=== PATIENT | male | born 1970 | race African-American/Black ===

== ENCOUNTER 2017-05-09 08:39 | Outpatient (CLI) | payer OTHER ==
--- NOTE | 2017-05-09 10:15 | MRI ---
MRI RIGHT KNEE WITHOUT CONTRAST: Date: 05/09/17 HISTORY: S89.91XD, injury of right knee. COMPARISON: Knee radiograph dated 07/12/07. FINDINGS: Medial Meniscus: Mild free edge fraying. No displaced tear. Lateral Meniscus: Chronic undersurface tear of the posterior horn lateral meniscus extending to the root attachment. Th ere is also a full thickness radial tear of the posterior horn and body junction with loss of volume of lateral meniscal body. ACL and PCD are intact. MCL and LCL are also intact. Extensor Mechanism: There is mild elongation of the lateral patellar facet. The patellar tendon and quadriceps tendon are intact. Cartilage: Patellofemoral compartment: There is 50% thickness cartilage fissure of the lateral trochlea. Medical compartment: A few 50-75% thickness cartilage fissures of the central weightbearing surface of the medial femoral condyle. No subchondral edema. Posterior flexion zone is intact. Lateral compartment: There is extensive cartilage loss of the weightbearing surface of medial femora l condyle and medial tibial plateau of 50-75%. Soft Tissues: Small popliteal cyst without evidence of leak. Muscles: Normal muscle signal and bulk. Bones: Moderate size tricompartmental osteophytes, largest in the lateral compartment. IMPRESSION: 1. Full thickness radial tear posterior horn and body junction of lateral meniscus with extension of the undersurface flap tear of the posterior horn and root attachment. There is subsequent loss of no rmal hoop stress, remodeling of the lateral compartment, and large osteophyte formation. There is als o multifocal 50-75% cartilage loss. 2. Small to moderate size patellofemoral osteophytes and small medial compartment osteophytes. 3. 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 POS: [facility]
== END 2017-05-09 08:40 | disposition home or self-care (01) ==
LOC: MRI 08:39
PROVIDERS: ATTEND Family Medicine
DX: S86.911D Strain of unspecified muscle(s) and tendon(s) at lower leg level, right leg, subsequent encounter (principal); S89.91XD Unspecified injury of right lower leg, subsequent encounter; S83.281A Other tear of lateral meniscus, current injury, right knee, initial encounter; M22.41 Chondromalacia patellae, right knee

== ENCOUNTER 2017-10-20 22:43 | Emergency (ER) | payer SELFPAY ==
--- NOTE | 2017-10-20 23:07 | RAD ---
FRONTAL VIEW CHEST: 10/20/17 INDICATION: Fall, chest pain. FINDINGS: There is mild elevation of the left hemidiaphragm. There is minimal patchy density at the left latera l lung base. Right lung is clear. the cardiac silhouette is accentuated by portable supine technique. IMPRESSION: Elevated left hemidiaphragm with minimal patchy left basilar densities that could reflect volume loss . POS: [facility]
--- NOTE | 2017-10-20 23:15 | CT ---
CT OF HEAD NONCONTRAST: 10/20/17 INDICATION: Fall, injury. FINDINGS: No intracranial hemorrhage, mass effect, midline shift or ventriculomegaly. Mild paranasal sinus muco neelam thickening. There is mild nasal bone deformity, age-indeterminate. Correlate clinically. IMPRESSION: No acute intracranial abnormalities. POS: [facility]
--- NOTE | 2017-10-20 23:21 | CT ---
CERVICAL SPINE CT NONCONTRAST: 10/20/17 INDICATION: Posttraumatic neck pain, injury related to fall. FINDINGS: There is multilevel degenerative change of the cervical spine, although no evidence of acute compress ion fracture or subluxation. No retropulsion of bone into the vertebral canal. Craniocervical junctio n is intact. IMPRESSION: No acute osseous abnormality of the cervical spine. POS: [facility]
--- NOTE | 2017-10-20 23:22 | CT ---
THORACIC SPINE CT NONCONTRAST: 10/20/17 INDICATION: Pain related to fall and injury. FINDINGS: No evidence of an acute compression fracture or subluxation. There is mild multiple end plate degener ative changes of the thoracic spine. No retropulsion of bone into the vertebral canal or evidence of acute facet malalignment. There is multilevel facet degenerative change. IMPRESSION: No acute osseous abnormality of the thoracic spine. POS: [facility]
--- NOTE | 2017-10-20 23:24 | CT ---
CT LUMBAR SPINE NONCONTRAST: 10/20/17 INDICATION: Posttraumatic back pain related to injury from fall. FINDINGS: There is multilevel degenerative change most pronounced at L5-S1. There is no acute compression fract ure or subluxation. The imaged retroperitoneum reveals no obvious acute pathology, where visualized. IMPRESSION: No acute osseous abnormality of the lumbar spine. POS: [facility]
[2017-10-20 23:31] LABS: #Basophils 0.1 thou/uL (0.0-0.2); #Eosinphils 0.3 thou/uL (0.0-0.7); #Lymphocytes 2.7 thou/uL (1.20-3.40); #Monocytes 0.9 thou/uL (0.11-0.59); #Neutrophils 4.1 thou/uL (1.40-6.50); %Basophils 0.8 % (0.0-1.0); %Eosinophils 3.3 % (0.0-10.0); %Lymphocytes 33.6 % (21.0-51.0); %Neutrophils 51.3 % (42.0-75.0); Hemoglobin 15.6 g/dL (14.0-18.0); Mean Corpuscular HGB CONC 35.3 g/dL (32.0-36.0); Mean Corpuscular Hemoglobin 33.1 pg (27.0-31.0); Mean Corpuscular Volume 93.9 fL (78.0-98.0); Mean Platelet Volume 7.9 fL (7.4-10.4); Platelet Count 187 thou/uL (130-400); RBC Distribution Width 12.5 % (11.5-14.5); Red Blood Cell (RBC) Count 4.71 mill/uL (4.70-6.10)
[2017-10-20 23:38] LABS: PTT 24.9 SEC (22.9-36.1); Prothrombin Time 13.7 SEC (12.0-14.7)
[2017-10-20 23:54] LABS: ALT (SGPT) 32 U/L (8-55); AST (SGOT) 28 U/L (5-34); Albumin 4.4 g/dL (3.5-5.0); Alkaline Phosphatase 60 U/L (40-150); Anion Gap 12 mmol/L (10-20); BUN (Urea Nitrogen) 17 mg/dL (8.9-20.6); Bilirubin, Total 0.9 mg/dL (0.2-1.2); Calc. Creatinine Clearance 0 mL/min (70-130); Calcium 9.5 mg/dL (7.8-10.44); Carbon Dioxide 23 mmol/L (22-29); Chloride 106 mmol/L (98-107); Estimated GFR-MDRD 84; Globulin 3.6 g/dL (2.4-3.5); Glucose 110 mg/dL (70-105); Potassium 3.7 mmol/L (3.5-5.1); Sodium 137 mmol/L (136-145)
[2017-10-21] MEDS ORDERED: Ibuprofen 800 MG TAB ONE (00:13)
== END 2017-10-21 00:30 | disposition home or self-care (01) ==
LOC: ERS 22:43
DX: S39.012A Strain of muscle, fascia and tendon of lower back, initial encounter (principal); S00.03XA Contusion of scalp, initial encounter; R56.9 Unspecified convulsions; F17.290 Nicotine dependence, other tobacco product, uncomplicated; W19.XXXA Unspecified fall, initial encounter
CPT/HCPCS: 36415; 70450; 71045; 72125; 72128; 72131; 80053; 84146; 85025; 85610; 85730

== ENCOUNTER 2019-03-23 15:25 | Observation (INO) | payer SELFPAY ==
[2019-03-23 16:11] LABS: #Basophils 0.1 thou/uL (0.0-0.2); #Eosinphils 0.5 thou/uL (0.0-0.7); #Lymphocytes 3.3 thou/uL (1.20-3.40); #Monocytes 0.8 thou/uL (0.11-0.59); #Neutrophils 3.9 thou/uL (1.40-6.50); %Basophils 1.2 % (0.0-1.0); %Eosinophils 5.8 % (0.0-10.0); %Lymphocytes 38.2 % (21.0-51.0); %Monocytes 9.5 % (0.0-10.0); %Neutrophils 45.3 % (42.0-75.0); Hemoglobin 15.2 g/dL (14.0-18.0); Mean Corpuscular HGB CONC 33.7 g/dL (32.0-36.0); Mean Corpuscular Hemoglobin 31.9 pg (27.0-31.0); Mean Corpuscular Volume 94.6 fL (78.0-98.0); Mean Platelet Volume 8.9 fL (7.4-10.4); Platelet Count 200 thou/uL (130-400); RBC Distribution Width 12.2 % (11.5-14.5); Red Blood Cell (RBC) Count 4.77 mill/uL (4.70-6.10); White Blood Cell (WBC) Count 8.5 thou/uL (4.8-10.8)
[2019-03-23 16:38] LABS: ALT (SGPT) 46 U/L (8-55); AST (SGOT) 33 U/L (5-34); Albumin 3.9 g/dL (3.5-5.0); Alkaline Phosphatase 57 U/L (40-110); Anion Gap 13 mmol/L (10-20); BUN (Urea Nitrogen) 16 mg/dL (8.9-20.6); Bilirubin, Total 0.4 mg/dL (0.2-1.2); Calc. Creatinine Clearance 0 mL/min (70-130); Calcium 9.1 mg/dL (7.8-10.44); Carbon Dioxide 27 mmol/L (22-29); Chloride 104 mmol/L (98-107); Estimated GFR-MDRD 82; Globulin 3.6 g/dL (2.4-3.5); Glucose 134 mg/dL (70-105); Potassium 4.1 mmol/L (3.5-5.1); Protein, Total 7.5 g/dL (6.0-8.3); Sodium 140 mmol/L (136-145)
--- NOTE | 2019-03-23 16:41 | RAD ---
EXAM: Single view of the chest HISTORY: Chest pain COMPARISON: 10/20/2017 FINDINGS: Single view of the chest shows a normal sized cardiomediastinal silhouette. There is no fely dence of consolidation, mass, or pleural effusion. The bones are unremarkable. IMPRESSION: No evidence of acute cardiopulmonary disease
[2019-03-23] MEDS ORDERED: traMADol HCl 50 MG TAB ONE (16:55)
[2019-03-23] MEDS ORDERED: Aspirin Chewable 81 MG TAB ONE (16:55)
[2019-03-23 17:02] LABS: CKMB 4.9 ng/mL (0-6.6)
[2019-03-23 19:39] LABS: Troponin I 0.038 ng/mL (< 0.028)
[2019-03-23 20:34] VITALS: BMI 29.5
[2019-03-23] MEDS ORDERED: Acetaminophen 650 MG Suppository PR PRN (21:44)
[2019-03-23] MEDS ORDERED: Acetaminophen 325 MG TAB PO PRN (21:44)
[2019-03-23 22:33] LABS: Troponin I 0.062 ng/mL (< 0.028)
[2019-03-23] MEDS: Sodium Chloride 0.9% 1,000 ML IV SCH (22:53)
[2019-03-24 01:59] LABS: CKMB 3.7 ng/mL (0-6.6)
--- NOTE | 2019-03-24 02:48 | HP ---
TIME OF ASSESSMENT: 2100 hours. CHIEF COMPLAINT: Left-sided chest and neck pain. HISTORY OF PRESENT ILLNESS: Mr. Razo is a very pleasant 49-year-old gentleman, who presents with complaints of left-sided chest pain and tenderness as well as pain to the left side of his neck, which has been going on for the last week and progressively worsening. He states the pain is made worse with any type of movement of his left upper extremity and his neck range of motion is also limited due to the pain. He denies having any associated shortness of breath. Denies having any trauma or injuries. The patient states he is athletic and very active and has never experienced any type of shortness of breath or chest pain with exertion. Denies any associated diaphoresis, nausea, or vomiting. Denies any abdominal pain. Has not had any recent fevers, chills, or sweats. He again denies any type of strenuous activity. He states last week, he did have a cough with occasional coughing fits and initially thought that the pain was due to muscle strain from his cough. Today, given the fact that his symptoms persisted, this prompted him to come in to the ER as he was afraid he may have pinched nerve in his neck. He otherwise has felt well in himself and has been without any other complaints. In the emergency department, he underwent an EKG, which showed sinus bradycardia with a heart rate of 48. He was given tramadol 50 mg p.o. and aspirin 324 mg p.o. He underwent laboratory studies that showed a normal full blood count. He had a sodium of 140, potassium 4.1, BUN 16, creatinine 1.16, GFR 82, and glucose 134. LFTs unremarkable. Lipase normal. However, troponin was indeterminate, initial troponin was 0.048 and a second troponin was 0.038. He had a chest x-ray done, which showed no acute intrathoracic abnormalities. He had a normal size cardiomediastinal silhouette. The patient was admitted for ACS rule out. PAST MEDICAL HISTORY: Seizure disorder, not medicated. PAST SURGICAL HISTORY: 1. Right knee surgery. 2. Testicular hernia repair. FAMILY HISTORY: The patient reports that his mother had a pacemaker placed. Otherwise, no other heart problems or history of NM. SOCIAL HISTORY: The patient reports smoking half a pack of Black and Mild per day. Denies any alcohol consumption or illicit drug use. ALLERGIES: NO KNOWN DRUG ALLERGIES. CURRENT MEDICATIONS: None. PHYSICAL EXAMINATION: GENERAL: The patient appears well developed, well nourished, and is in no acute distress. VITAL SIGNS: Temperature 97.4, pulse 49, blood pressure 121/59, respirations 16, and O2 saturation 99% on room air. HEENT: Normocephalic and atraumatic. Pupils are equal, round, and reactive to light. Sclerae without icterus. Oropharynx is clear. NECK: Supple without lymphadenopathy. LUNGS: Clear to auscultation bilaterally without wheezes, rales, or rhonchi. CARDIAC: Regular rate and rhythm. He does have significant tenderness to light palpation of the midsternal region and left side of his chest. Also pain elicited with extension and flexion against resistance of his left upper extremity. He has tenderness to the left side of his neck with limited range of motion due to pain on the left side of his neck. No associated neuro deficits or paresthesias or numbness. ABDOMEN: Soft, nontender, nondistended. Normoactive bowel sounds present. No guarding or rigidity. No renal angle tenderness. EXTREMITIES: No lower leg swelling or edema. NEUROLOGIC: Alert and oriented x3. SKIN: Warm and dry. INVESTIGATIONS: As mentioned above in HPI. IMPRESSION AND PLAN: Mr. Razo is a pleasant 49-year-old gentleman, who presented with left-sided chest and neck pain for the last week with no history of trauma or injury. He is being admitted for management of the following; 1. Acute coronary syndrome rule out. The patient with indeterminate troponins. Initial was 0.048, which slightly improved to 0.038. The patient with no known comorbidities. We will continue to trend troponins. Pain seems to be musculoskeletal in nature given the degree of tenderness and limited range of motion in his neck and arm. No neuro deficits. Some slight swelling to the left side of his neck. The patient has had a previous fracture to the sternoclavicular joint on that side. Denies any trauma, but has had forceful coughs last week. Chest x-ray unremarkable. We will obtain a CT of the chest and of the neck. We will add on a D-dimer first. If elevated, we will obtain CT angiogram of his chest. Otherwise, we will plan for a CT chest, noncontrast. We will add a TSH, check lipid panel, add on magnesium, and continue cardiac monitoring. 2. Gastrointestinal prophylaxis. Famotidine 20 mg b.i.d. 3. Deep venous thrombosis prophylaxis. The patient is ambulatory. 4. Code status, full. Surrogate decision maker is his mother, Nara Naqvi. The patient's case was discussed with attending, who agrees with plan of care as described above. Job ID: [id number]
[2019-03-24 04:43] LABS: #Basophils 0.1 thou/uL (0.0-0.2); #Eosinphils 0.6 thou/uL (0.0-0.7); #Lymphocytes 3.6 thou/uL (1.20-3.40); #Neutrophils 3.3 thou/uL (1.40-6.50); %Eosinophils 6.8 % (0.0-10.0); %Lymphocytes 42.4 % (21.0-51.0); %Monocytes 11.7 % (0.0-10.0); %Neutrophils 38.1 % (42.0-75.0); Hemoglobin 14.6 g/dL (14.0-18.0); Mean Corpuscular HGB CONC 33.5 g/dL (32.0-36.0); Mean Corpuscular Hemoglobin 31.6 pg (27.0-31.0); Mean Corpuscular Volume 94.2 fL (78.0-98.0); Mean Platelet Volume 9.1 fL (7.4-10.4); Platelet Count 179 thou/uL (130-400); RBC Distribution Width 12.1 % (11.5-14.5); Red Blood Cell (RBC) Count 4.64 mill/uL (4.70-6.10); White Blood Cell (WBC) Count 8.6 thou/uL (4.8-10.8)
[2019-03-24 05:05] LABS: Anion Gap 9 mmol/L (10-20); BUN (Urea Nitrogen) 18 mg/dL (8.9-20.6); Calc. Creatinine Clearance 135 mL/min (70-130); Calcium 8.4 mg/dL (7.8-10.44); Carbon Dioxide 25 mmol/L (22-29); Chloride 106 mmol/L (98-107); Estimated GFR-MDRD Greater than 90; Glucose 110 mg/dL (70-105); Potassium 3.9 mmol/L (3.5-5.1); Sodium 136 mmol/L (136-145)
[2019-03-24] MEDS: Famotidine/PF 20 mg/2ml Vial SLOW IVP SCH ×2 (08:20→20:33)
--- NOTE | 2019-03-24 11:41 | CT ---
POSTCONTRAST SOFT TISSUE NECK CT: HISTORY: Left-sided neck pain and swelling. Pain upon movement. Previous dissection. COMPARISON: None. TECHNIQUE: Postcontrast soft tissue neck CT is performed in the axial plane. Sagittal and coronal reformatted im ages are submitted. FINDINGS: Brain parenchyma: No abnormality. Sinuses: Adequate aeration of the paranasal sinuses and mastoid air cells. Aerodigestive tract: No mucosal abnormality. Aerodigestive tract appears to be patent. Effacement of the left piriform sinus is presumed to be due to benign apposition of mucosa. Nonspecific mild fullness of bilateral palatine tonsils. Parapharyngeal fat is maintained. Paraspinal muscles: There is symmetric attenuation of the paraspinal muscles as well as the sternocle idomastoid muscles Great vessels of the neck: Overall appropriate enhancement and luminal diameter. Limited evaluation d ue to technique. Possible minimal noncalcified plaque in the right carotid bifurcation and distal common carotid artery. Salivary glands: Symmetric attenuation of the parotid and mandibular glands. Thyroid gland: Unremarkable. Anterior neck: There is mild fat stranding involving the anterior neck subcutaneous fat. Minimal thic kening of the platysmas. No cystic or solid lesions. Lymph nodes: Mildly enlarged right submental lymph node measures 1.2 x 0.7 cm. There is evidence of e nlarged right level 1 lymph node. Conglomeration of enlarged right level II lymph nodes measures 2.7 x 1.1 cm. A large left level II lymph node measures 1.8 x 1.1 cm. There does not appear to be any solid or cystic mass in the left or right neck. Upper mediastinum and lung apices: No acute abnormality. Cervical spine: The vertebral body height is maintained. No fracture. Moderate central canal stenosis and bilateral neural foraminal narrowing at C3-C4 due to broad-based disc-osteophyte complex and uncovertebral hypertrophy. IMPRESSION: 1. Nonspecific soft tissue neck lymphadenopathy as described above. Correlate for an infectious, infl ammatory process. 2. Moderate central canal stenosis and neural foraminal narrowing at C3-C4. 3. Effacement of the left piriform sinus which is presumed to be due to benign apposition of mucosa. Direct visualization is recommended. Transcribed Date/Time: 03/24/2019 11:51 AM
[2019-03-24] MEDS: Sodium Chloride 0.9% 1,000 ML IV SCH (11:49)
--- NOTE | 2019-03-24 11:55 | CT ---
CHEST CT WITH CONTRAST: HISTORY: Previous dissection. Left-sided chest and neck pain, x3 weeks. Progressively worsening symptoms. FINDINGS: Mediastinum: No mass, lymphadenopathy or hematoma. Slightly prominent anterior mediastinal tissue may represent residual thymic tissue. Heart: Normal size. No significant pericardial fluid. Aorta: Normal caliber. No periaortic fat stranding. Upper abdomen: Solid organs are grossly unremarkable. Trachea and central bronchi are patent. Pleural spaces: No pleural effusion. Pneumothorax: None. Lungs: Minimal dependent atelectatic change. Right lung: No suspicious masses, consolidation or nodules. Left lung: No suspicious masses, consolidation or nodules. Osseous structures: There are no lytic or blastic lesions. Axilla and lower neck: No obvious acute abnormality. IMPRESSION: Unremarkable postcontrast chest CT. Transcribed Date/Time: 03/24/2019 1:06 PM
[2019-03-24] MEDS ORDERED: Iopamidol 370 76% 100 ML VIAL ONE (13:43)
[2019-03-24 22:05] VITALS: BP 126/66; TEMP 98.4
--- NOTE | 2019-03-25 13:47 | DIS ---
DATE OF ADMISSION: 03/23/2019 DATE OF DISCHARGE: 03/24/2019 DISCHARGE DIAGNOSES: 1. Chest pain consistent with costochondritis. 2. Neck pain. 3. Moderate central canal stenosis at C3-4. 4. Moderate neuroforaminal narrowing at C3-C4. 5. Nonspecific mild lymphadenopathy of the neck, felt to be a benign incidental finding. 6. Indeterminate troponin, not felt to be significantly significant and not following any physiologic pattern. HISTORY OF PRESENT ILLNESS: This patient is a 49-year-old male, who presented to the emergency department complaining of pain in his left neck and in his left chest area that had persisted for several days. The pain in his neck was positional and appeared to be worse when turning his head to extremely far to the right, triggering pain in the left posterior neck. The chest pain appeared to be related to tenderness of the chest wall and increased with certain movements or taking a deep breath. His initial EKG was unremarkable and his troponins were notable to be in the indeterminate range with the initial troponin 0.048. HOSPITAL COURSE: The patient was admitted to the hospital with an indeterminate troponin and left neck and chest pain, which appeared to be more musculoskeletal. Series of troponins revealed a nonphysiologic change from 0.048 to 0.038 to 0.62 and 0.041. Telemetry revealed the patient to have some resting bradycardia; however, had a normal physiologic response to activity. The patient had a CT of the neck, which revealed some nonspecific mild lymphadenopathy, which was felt to be a benign incidental finding. He also had moderate central canal and neuroforaminal narrowing at C3 and C4. CT of the chest was unremarkable. Echocardiogram revealed EF of 55% to 60% with no other abnormalities. With this, the patient was felt to be stable for discharge for outpatient followup. PHYSICAL EXAMINATION: VITAL SIGNS: Temperature is 98.4, pulse is 46, respirations 18, O2 saturation 99% on room air, BP 126/60. GENERAL: The patient was awake and alert. HEART: Regular rate and rhythm. There was tenderness to palpation at the left lower costochondral sternal border. LUNGS: Clear to auscultation bilaterally. ABDOMEN: Soft, nontender, and nondistended. EXTREMITIES: No edema. MUSCULOSKELETAL: Revealed very minimal tenderness to palpation in the left posterior neck with the patient's head being rotated to the right, but no other palpable masses or anatomic abnormalities were noted. DISPOSITION: The patient is discharged to home. DIET: He will be on a regular diet. ACTIVITY: As tolerated. DISCHARGE MEDICATIONS: He may take some [id number] anti-inflammatory medications as needed, but will have no new prescriptions. FOLLOWUP: He is encouraged to establish with a primary care provider for followup. This case was subsequently briefly reviewed with Cardiology, who agreed with the overall assessment and plan. Job ID: [id number]
--- NOTE | 2019-03-27 11:11 | EKG ---
Test Reason : ER INDICATION Blood Pressure : / mmHG Vent. Rate : 048 BPM Atrial Rate : 048 BPM P-R Int : 154 ms QRS Dur : 090 ms QT Int : 418 ms P-R-T Axes : 017 048 057 degrees QTc Int : 373 ms Sinus bradycardia Otherwise normal ECG Confirmed by ENDY LOVE ([id number]), image editor EILEEN CISNEROS ([id number]) on 03/27/2019 11:11:09 AM Referred By: Confirmed By:ENDY LOVE
== END 2019-03-24 22:15 | disposition left against medical advice (07) ==
LOC: ERS 15:25 → 2NO 20:11
PROVIDERS: ADMIT Family Medicine; ATTEND Family Medicine
DX: R07.89 Other chest pain (principal); M48.02 Spinal stenosis, cervical region; R59.0 Localized enlarged lymph nodes; G40.909 Epilepsy, unspecified, not intractable, without status epilepticus
CPT/HCPCS: 36415; 70491; 71045; 71260; 80048; 80053; 82553; 83690; 83880; 84443; 84484; 85025; 85379; 93005; 93306; 96361; 96374; G0378; Q9967; S0028

== ENCOUNTER 2022-05-21 20:08 | Emergency (ER) | payer SELFPAY ==
[2022-05-21] MEDS ORDERED: Lidocaine 1% w/Epinephrine 1:100K 20 ML VIAL ONE (21:00)
[2022-05-21] MEDS ORDERED: Boostrix 0.5 ML (Tdap) VIAL (>/=7 yrs of age) ONE (21:01)
[2022-05-21 21:08] LABS: #Basophils 0.1 thou/uL (0.0-0.2); #Eosinphils 0.5 thou/uL (0.0-0.7); #Lymphocytes 3.9 thou/uL (1.20-3.40); #Monocytes 0.7 thou/uL (0.11-0.59); #Neutrophils 2.9 thou/uL (1.40-6.50); %Basophils 1.1 % (0.0-1.0); %Eosinophils 6.3 % (0.0-10.0); %Lymphocytes 47.7 % (21.0-51.0); %Monocytes 8.8 % (0.0-10.0); Hemoglobin 14.2 g/dL (14.0-18.0); Mean Corpuscular HGB CONC 33.5 g/dL (32.0-36.0); Mean Corpuscular Hemoglobin 32.2 pg (27.0-31.0); Mean Corpuscular Volume 96.2 fl (78.0-98.0); Mean Platelet Volume 8.6 fL (7.4-10.4); Platelet Count 178 10x3/uL (130-400); RBC Distribution Width 12.3 % (11.5-14.5); White Blood Cell (WBC) Count 8.1 10x3/uL (4.8-10.8)
[2022-05-21 21:33] LABS: ALT (SGPT) 29 U/L (8-55); AST (SGOT) 26 U/L (5-34); Albumin 3.9 g/dL (3.5-5.0); Alkaline Phosphatase 56 U/L (40-110); Anion Gap 13 mmol/L (10-20); BUN (Urea Nitrogen) 13 mg/dL (8.9-20.6); Bilirubin, Total 0.4 mg/dL (0.2-1.2); CK (CPK) 423 U/L (30-200); Calc. Creatinine Clearance 0 mL/min (70-130); Carbon Dioxide 22 mmol/L (22-29); Chloride 106 mmol/L (98-107); Estimated GFR 79; Globulin 3.3 g/dL (2.4-3.5); Glucose 96 mg/dL (70-105); Potassium 3.6 mmol/L (3.5-5.1); Protein, Total 7.2 g/dL (6.0-8.3); Sodium 137 mmol/L (136-145)
== END 2022-05-21 22:26 | disposition home or self-care (01) ==
LOC: ERS 20:08
DX: S01.81XA Laceration without foreign body of other part of head, initial encounter (principal); S40.021A Contusion of right upper arm, initial encounter; S80.812A Abrasion, left lower leg, initial encounter; G40.909 Epilepsy, unspecified, not intractable, without status epilepticus; F17.210 Nicotine dependence, cigarettes, uncomplicated; W18.30XA Fall on same level, unspecified, initial encounter; Z23 Encounter for immunization
CPT/HCPCS: 12011; 36415; 70450; 80053; 82550; 85025; 90471; 90715

== ENCOUNTER 2023-10-01 15:12 | Emergency (ER) | payer SELFPAY ==
[~2023-10-01 15:12] MED LIST: Iopamidol-370 76% 500 ML MDV (1 ML CHARGE) ONE
[2023-10-01] MEDS ORDERED: Metoclopramide HCl 10 MG (2 mL) VIAL ONE (16:46)
[2023-10-01] MEDS ORDERED: Ketorolac Tromethamine 30 MG (1 mL) VIAL ONE (16:46)
[2023-10-01] MEDS ORDERED: diphenhydrAMINE 50 MG/ML VIAL ONE (16:46)
[2023-10-01 18:44] LABS: #Basophils 0.03 10x3/uL (0.0-0.2); %Basophils 0.4 % (0.0-1.0); %Eosinophils 3.6 % (0.0-10.0); %Lymphocytes 33.4 % (21.0-51.0); %Monocytes 9.8 % (0.0-10.0); %Neutrophils 52.7 % (42.0-75.0); Hematocrit 39.8 % (42.0-52.0); Hemoglobin 13.6 g/dL (14.0-18.0); Mean Corpuscular HGB CONC 34.2 g/dL (32.0-36.0); Mean Corpuscular Hemoglobin 31.4 pg (27.0-31.0); Mean Corpuscular Volume 91.9 fL (78.0-98.0); Mean Platelet Volume 10.7 fL (7.4-10.4); Platelet Count 206 10x3/uL (130-400); RBC Distribution Width 13.1 % (11.5-14.5); Red Blood Cell (RBC) Count 4.33 mill/uL (4.70-6.10)
[2023-10-01 18:57] LABS: Prothrombin Time 13.4 sec (12.0-14.7)
[2023-10-01 19:06] LABS: Troponin I 0.057 ng/mL (< 0.028)
[2023-10-01 19:12] LABS: ALT (SGPT) 21 U/L (8-55); AST (SGOT) 17 U/L (5-34); Albumin 3.5 g/dL (3.5-5.0); Alkaline Phosphatase 57 U/L (40-110); Anion Gap 10 mmol/L (10-20); BUN (Urea Nitrogen) 12 mg/dL (8.4-25.7); Bilirubin, Total 0.3 mg/dL (0.2-1.2); Calc. Creatinine Clearance 0 mL/min (70-130); Calcium 8.9 mg/dL (7.8-10.44); Carbon Dioxide 24 mmol/L (22-29); Chloride 108 mmol/L (98-107); Estimated GFR 105; Globulin 3.3 g/dL (2.4-3.5); Glucose 144 mg/dL (70-105); Magnesium 1.9 mg/dL (1.6-2.6); Protein, Total 6.8 g/dL (6.0-8.3); Sodium 138 mmol/L (136-145)
[2023-10-01 21:15] LABS: Acetaminophen Less than 10 mcg/mL (10.0-30.0); Alcohol Less than 10.0 mg/dL (Less than 10); Salicylate Less than 8.0 mg/dL (15.0-30.0)
[2023-10-01 21:20] LABS: Troponin I 0.051 ng/mL (< 0.028)
== END 2023-10-01 22:01 | disposition home or self-care (01) ==
LOC: ERS 15:12
DX: R51.9 Headache, unspecified (principal); R00.1 Bradycardia, unspecified; R79.89 Other specified abnormal findings of blood chemistry; F17.210 Nicotine dependence, cigarettes, uncomplicated
CPT/HCPCS: 36415; 70496; 70498; 71045; 80053; 80307; 83735; 83880; 84484; 85025; 85610; 85730; 93005; 96374; 96375; J1200; J1885; J2765; Q9967